=== PATIENT | female | born 1995 | race African-American/Black ===

== ENCOUNTER 2019-07-06 12:09 | Outpatient (CLI) | payer MEDICAID ==
[2019-07-06 12:44] LABS: APPEARANCE,URINE SLIGHTLY-CLOUDY; BILIRUBIN,URINE NEGATIVE (NEGATIVE); COLOR,URINE YELLOW; GLUCOSE, URINE NEGATIVE (NEGATIVE); KETONES,URINE TRACE mg/dL (NEGATIVE); LEUKOCYTE ESTERASE,URINE SMALL (NEGATIVE); NITRITE,URINE NEGATIVE (NEGATIVE); PROTEIN,URINE 30 mg/dL (NEGATIVE); URINE SPECIFIC GRAVITY 1.024
[2019-07-06 12:59] LABS: URINE AMPHETAMINES SCREEN NEGATIVE; URINE BARBITURATES SCREEN NEGATIVE; URINE BENZODIAZEPINES SCREEN NEGATIVE; URINE COCAINE SCREEN NEGATIVE; URINE MARIJUANA (THC) SCREEN NEGATIVE; URINE METHADONE SCREEN NEGATIVE; URINE PHENCYCLIDINE SCREEN NEGATIVE
[2019-07-06] MEDS ORDERED: HYDROXYZINE PAMOATE 50 MG CAPSULE PO ONE (13:04)
[2019-07-06] MEDS ORDERED: HYDROXYZINE PAMOATE 50 MG CAPSULE ONE (13:05)
--- NOTE | 2019-07-06 13:15 | Non Stress Test Report ---
Non Stress Test Datetime Report Generated by CPN: 07/06/2019 13:15 DEMOGRAPHIC EGA NST: 37.4 INDICATION Indication for Study (NST) Other: Contractions Indication for Study (NST) Other: false labor VITAL SIGNS Temperature - NST: 98.6 MONITORING Monitor Explained: Monitor Explained; Test Explained; Patient Verbalized Understanding Monitor Explained: Monitor Explained; Test Explained; Patient Verbalized Understanding Time on Monitor: 07/06/2019 12:26 Time on Monitor: 07/06/2019 12:26 Time off Monitor: 07/06/2019 12:57 Time off Monitor: 07/06/2019 12:51 NST Duration: 31 NST Duration: 25 NST INTERVENTIONS NST Interventions: PO Hydration; Reposition Patient Physician Notified NST: DrPaloma Mackaye Physician Notified NST: DrPaloma Mackaye on unit, reviewed fht BABY A: [id number] BABY A Movement : Present Movement : Present Contraction Frequency : occasional Contraction Frequency : x1 FHR Baseline : 140 Accelerations : 15X15 Accelerations : 15X15 Decelerations : None Decelerations : None Variability : Moderate 6-25bpm Variability : Moderate 6-25bpm NST Review: Meets Criteria for Reactive NST NST Review: Meets Criteria for Reactive NST NST Review and Verified By : Ranjana Snell RN NST Review and Verified By : Héctor Hwang RN NST Results: Reactive NST Results: Reactive NST REPORT Report Trigger: Send Report
== END 2019-07-06 13:48 | disposition home or self-care (01) ==
LOC: LC 12:09
PROVIDERS: ATTEND Obstetrics & Gynecology
PROC: 4A1HXCZ Monitoring of Products of Conception, Cardiac Rate, External Approach (ICD-10-PCS; principal; 2019-07-06)
DX: O47.1 False labor at or after 37 completed weeks of gestation (principal); Z3A.37 37 weeks gestation of pregnancy
CPT/HCPCS: 59025; 81005; 80307; J3490

== ENCOUNTER 2019-07-23 01:36 | Outpatient (CLI) | payer MEDICAID ==
--- NOTE | 2019-07-23 02:59 | Non Stress Test Report ---
Non Stress Test Datetime Report Generated by CPN: 07/23/2019 02:58 DEMOGRAPHIC EGA NST: 40.0 INDICATION Indication for Study (NST) Other: LC IUP @ 40 MONITORING Monitor Explained: Monitor Explained; Test Explained; Patient Verbalized Understanding Time on Monitor: 07/23/2019 02:12 Time off Monitor: 07/23/2019 02:57 NST Duration: 45 NST INTERVENTIONS NST Interventions: PO Hydration; Meal Given; Reposition Patient Physician Notified NST: Dr. Dorado BABY A: [id number] BABY A Movement : Present Contraction Frequency : 6-6.5 FHR Baseline : 125 Accelerations : 15X15 Decelerations : None Variability : Moderate 6-25bpm NST Review: Meets Criteria for Reactive NST NST Review and Verified By : Keagan Pettit RN NST Results: Reactive NST REPORT Report Trigger: Send Report
[2019-07-23 03:19] LABS: APPEARANCE,URINE CLEAR; BILIRUBIN,URINE NEGATIVE (NEGATIVE); COLOR,URINE YELLOW; GLUCOSE, URINE NEGATIVE (NEGATIVE); KETONES,URINE NEGATIVE (NEGATIVE); LEUKOCYTE ESTERASE,URINE MODERATE (NEGATIVE); NITRITE,URINE NEGATIVE (NEGATIVE); PROTEIN,URINE NEGATIVE (NEGATIVE); URINE SPECIFIC GRAVITY 1.012; UROBILINOGEN,URINE NEGATIVE mg/dL (<2.0)
[2019-07-23 03:55] LABS: URINE AMPHETAMINES SCREEN NEGATIVE; URINE BARBITURATES SCREEN NEGATIVE; URINE BENZODIAZEPINES SCREEN NEGATIVE; URINE COCAINE SCREEN NEGATIVE; URINE MARIJUANA (THC) SCREEN NEGATIVE; URINE METHADONE SCREEN NEGATIVE; URINE PHENCYCLIDINE SCREEN NEGATIVE
== END 2019-07-23 03:40 | disposition home or self-care (01) ==
LOC: LC 01:36
PROVIDERS: ATTEND Obstetrics & Gynecology
PROC: 4A1HXCZ Monitoring of Products of Conception, Cardiac Rate, External Approach (ICD-10-PCS; principal; 2019-07-23)
DX: O47.1 False labor at or after 37 completed weeks of gestation (principal); Z3A.40 40 weeks gestation of pregnancy
CPT/HCPCS: 59025; 80307; 81005

== ENCOUNTER 2019-07-25 11:50 | Outpatient (CLI) | payer MEDICAID ==
[2019-07-25 12:32] LABS: APPEARANCE,URINE SLIGHTLY-CLOUDY; BILIRUBIN,URINE NEGATIVE (NEGATIVE); COLOR,URINE YELLOW; GLUCOSE, URINE NEGATIVE (NEGATIVE); KETONES,URINE NEGATIVE (NEGATIVE); LEUKOCYTE ESTERASE,URINE TRACE (NEGATIVE); NITRITE,URINE NEGATIVE (NEGATIVE); PROTEIN,URINE NEGATIVE (NEGATIVE); URINE SPECIFIC GRAVITY 1.016
--- NOTE | 2019-07-25 12:51 | Non Stress Test Report ---
Non Stress Test Datetime Report Generated by CPN: 07/25/2019 12:51 DEMOGRAPHIC EGA NST: 40.2 INDICATION Indication for Study (NST) Other: LC ordered by MD VITAL SIGNS Temperature - NST: 98.4 Pulse - NST: 95 RESP - NST: 16 NBPSYS NST: 117 NBPDIA NST: 69 MONITORING Monitor Explained: Monitor Explained; Test Explained; Patient Verbalized Understanding Time on Monitor: 07/25/2019 12:10 Time off Monitor: 07/25/2019 12:48 NST Duration: 38 NST INTERVENTIONS NST Interventions: PO Hydration Physician Notified NST: Dr Willson BABY A: [id number] BABY A Movement : Present Contraction Frequency : rare FHR Baseline : 140 Accelerations : 15X15 Decelerations : None Variability : Moderate 6-25bpm NST Review: Meets Criteria for Reactive NST NST Review and Verified By : C. Cuba RN NST Results: Reactive NST COMMENTS NST Comments: provider on unit reviewing NST REPORT Report Trigger: Send Report
[2019-07-25 12:55] LABS: URINE AMPHETAMINES SCREEN NEGATIVE; URINE BARBITURATES SCREEN NEGATIVE; URINE BENZODIAZEPINES SCREEN NEGATIVE; URINE COCAINE SCREEN NEGATIVE; URINE MARIJUANA (THC) SCREEN NEGATIVE; URINE METHADONE SCREEN NEGATIVE; URINE PHENCYCLIDINE SCREEN NEGATIVE
== END 2019-07-25 13:00 | disposition home or self-care (01) ==
LOC: LC 11:50
PROVIDERS: ATTEND Obstetrics & Gynecology Gynecology
PROC: 4A1HXCZ Monitoring of Products of Conception, Cardiac Rate, External Approach (ICD-10-PCS; principal; 2019-07-25)
DX: O47.1 False labor at or after 37 completed weeks of gestation (principal); O99.283 Endocrine, nutritional and metabolic diseases complicating pregnancy, third trimester; E86.0 Dehydration; O48.0 Post-term pregnancy; Z3A.40 40 weeks gestation of pregnancy
CPT/HCPCS: 80307; 81005; 84112

== ENCOUNTER 2019-07-26 15:47 | Outpatient (CLI) | payer MEDICAID | END 2019-07-26 16:21 | disposition home or self-care (01) | LOC: LC 15:47 | PROVIDERS: ATTEND Obstetrics & Gynecology | PROC: 4A1HXCZ Monitoring of Products of Conception, Cardiac Rate, External Approach (ICD-10-PCS; principal; 2019-07-26) | DX: O48.0 Post-term pregnancy (principal); O99.283 Endocrine, nutritional and metabolic diseases complicating pregnancy, third trimester; E86.0 Dehydration; Z3A.40 40 weeks gestation of pregnancy | CPT/HCPCS: 59025 ==

== ENCOUNTER 2019-07-30 21:34 | Inpatient (IN) | payer MEDICAID ==
[2019-07-30] MEDS ORDERED: DINOPROSTONE 10 MG VAGINAL INSERT.SR ONE (22:27)
[2019-07-30] MEDS ORDERED: OXYTOCIN/NORMAL SALINE 20 UNIT/1,000 ML RTUINJ IV PRN (22:36)
[2019-07-30] MEDS ORDERED: RINGERS SOLUTION,LACTATED 1,000 ML IV PRN (22:36)
[2019-07-30] MEDS ORDERED: DINOPROSTONE 10 MG VAGINAL INSERT.SR PV PRN (22:36)
[2019-07-30] MEDS ORDERED: RINGERS SOLUTION,LACTATED 300 ML IV ONE (22:36)
[2019-07-30 23:31] LABS: ABSOLUTE EOSINOPHILS # (AUTO) 0.1 10^3/uL (0.0-0.6); ABSOLUTE MONOCYTES (AUTO) 0.7 10^3/uL (0.1-1.4); ABSOLUTE NEUT (AUTO) 5.4 10^3/uL (1.7-8.2); BASOPHILS % (AUTO) 0.4 % (0-2); EOSINOPHILS % (AUTO) 0.8 % (0-6); HEMATOCRIT 36.9 % (36.0-47.0); HEMOGLOBIN 12.7 g/dL (12.0-15.5); LYMPHOCYTES % (AUTO) 24.6 % (13-45); MEAN CORPUSCULAR HGB CONC 34.3 g/dL (32.0-36.0); MEAN CORPUSCULAR VOLUME 99 fl (80-97); MONOCYTES % (AUTO) 8.2 % (3-13); PLATELET COUNT 283 10^3/uL (150-450); RED BLOOD COUNT 3.72 10^6/uL (3.72-5.28); RED CELL DISTRIBUTION WIDTH 14.1 % (11.5-14.0); TOTAL CELLS COUNTED % (AUTO) 100 %; WHITE BLOOD COUNT 8.2 10^3/uL (4.0-10.5)
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
[2019-07-31 07:54] LABS: APPEARANCE,URINE SLIGHTLY-CLOUDY; BILIRUBIN,URINE NEGATIVE (NEGATIVE); COLOR,URINE YELLOW; GLUCOSE, URINE NEGATIVE (NEGATIVE); KETONES,URINE NEGATIVE (NEGATIVE); LEUKOCYTE ESTERASE,URINE SMALL (NEGATIVE); NITRITE,URINE NEGATIVE (NEGATIVE); PROTEIN,URINE 30 mg/dL (NEGATIVE); URINE SPECIFIC GRAVITY 1.027
[2019-07-31 08:40] LABS: URINE AMPHETAMINES SCREEN NEGATIVE; URINE BARBITURATES SCREEN NEGATIVE; URINE BENZODIAZEPINES SCREEN NEGATIVE; URINE COCAINE SCREEN NEGATIVE; URINE MARIJUANA (THC) SCREEN NEGATIVE; URINE METHADONE SCREEN NEGATIVE; URINE PHENCYCLIDINE SCREEN NEGATIVE
[2019-07-31] MEDS ORDERED: LIDOCAINE 1% INJ-PF (10 MG/ML) 30 ML SDV ONE (12:27)
[2019-07-31] MEDS ORDERED: OXYTOCIN 10 UNIT/ML VIAL ONE (12:27)
[2019-07-31] MEDS ORDERED: MISOPROSTOL 0.2 MG TABLET ONE (12:27)
[2019-07-31] MEDS ORDERED: OXYTOCIN/NORMAL SALINE 20 UNIT/1,000 ML RTUINJ ONE (12:27)
[2019-07-31] MEDS ORDERED: DEXTROSE 5%-LACTATED RINGERS 1,000 ML IV ONE (18:12)
[2019-07-31] MEDS ORDERED: DIBUCAINE 1% OINTMENT 28 GM TP PRN (22:06)
[2019-07-31] MEDS ORDERED: MISOPROSTOL 0.2 MG TABLET PR PRN (22:06)
[2019-07-31] MEDS ORDERED: OXYTOCIN/NORMAL SALINE 20 UNIT/1,000 ML RTUINJ IV PRN (22:06)
[2019-07-31] MEDS ORDERED: DIPH/PERTUSS(ACELL)/TETANUS VAC/PF 0.5 ML SYR (>=10YO) IM PRN (22:06)
[2019-07-31] MEDS ORDERED: BENZOCAINE/MENTHOL AEROSOL SPRAY 56 ML TOP PRN (22:06)
[2019-07-31] MEDS ORDERED: ZOLPIDEM TARTRATE 5 MG TABLET PO PRN (22:06)
[2019-07-31] MEDS ORDERED: ACETAMINOPHEN WITH CODEINE #3 TABLET PO PRN ×2 (22:06)
[2019-08-01] MEDS ORDERED: CEFAZOLIN INJ 1 GM VIAL ONE (03:36)
[2019-08-01] MEDS: CEFAZOLIN 2 GM/D5W RTU 2 GM/50 ML RTUPB IV SCH ×2 (03:57→16:52)
[2019-08-01] MEDS: IBUPROFEN 800 MG TABLET PO SCH ×3 (05:57→22:19)
[2019-08-01 07:01] LABS: HEMATOCRIT 32.7 % (36.0-47.0); HEMOGLOBIN 11.2 g/dL (12.0-15.5); MEAN CORPUSCULAR HEMOGLOBIN 34.1 pg (27.0-33.4); MEAN CORPUSCULAR HGB CONC 34.2 g/dL (32.0-36.0); MEAN CORPUSCULAR VOLUME 100 fl (80-97); PLATELET COUNT 248 10^3/uL (150-450); RED BLOOD COUNT 3.28 10^6/uL (3.72-5.28)
[2019-08-01] MEDS: PRENATAL VITAMIN W DHA CAPSULE PO SCH (09:39)
[2019-08-01] MEDS: SENNOSIDES/DOCUSATE 8.6-50 MG 1 EACH TABLET PO SCH (09:39)
[2019-08-01] MEDS: FERROUS SULFATE 325 MG TABLET PO SCH ×2 (09:39→17:45)
[2019-08-01] MEDS: DOCUSATE SODIUM 100 MG CAPSULE PO SCH ×2 (09:40→17:45)
--- NOTE | 2019-08-01 09:45 | PDOC PROGRESS REPORT ---
Subjective-OB Progress Note for:: 08/01/19 Physical Exam (OB) Vital Signs: Temp Pulse Resp BP Pulse Ox 98.0 F 88 16 111/61 99 08/01/19 07:39 08/01/19 07:39 08/01/19 07:39 08/01/19 07:39 08/01/19 07:39 Intake & Output 07/31/19 08/01/19 08/02/19 06:59 06:59 06:59 Intake Total 650 200 Balance 650 200 Weight 77 kg - PIH/Pre-Eclampsia Headache: Absent Epigastric Pain: No Visual Changes: No - Lochia Lochia Amount: Scant < 10 ml Lochia Color: Rubra/Red - Abdomen Description: Tender, Soft Hernia Present: No Bowel Sounds: Normoactive Flatus Presence: Absent Stool: No Fundal Description: Firm, Midline Fundal Height: u/u - u/2 Objective-Diagnostic Laboratory: 08/01/19 06:31 08/01/19 06:31 WBC 14.0 H RBC 3.28 L Hgb 11.2 L Hct 32.7 L MCV 100 H MCH 34.1 H MCHC 34.2 RDW 14.0 Plt Count 248
[2019-08-01] MEDS: CEFAZOLIN SODIUM 2 GM in DEXTROSE 5%-WATER 100 ML IV SCH ×2 (12:22→17:46)
[2019-08-02] MEDS: IBUPROFEN 800 MG TABLET PO SCH ×2 (05:09→13:57)
[2019-08-02] MEDS: DOCUSATE SODIUM 100 MG CAPSULE PO SCH ×2 (09:36→18:28)
[2019-08-02] MEDS: PRENATAL VITAMIN W DHA CAPSULE PO SCH (09:37)
[2019-08-02] MEDS: FERROUS SULFATE 325 MG TABLET PO SCH ×2 (09:37→18:28)
[2019-08-02] MEDS: SENNOSIDES/DOCUSATE 8.6-50 MG 1 EACH TABLET PO SCH (09:37)
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
[2019-08-02 11:59] VITALS: BP 122/79
--- NOTE | 2019-08-06 12:48 | Delivery Summary ---
Del Sum A-C Datetime Report Generated by CPN: 08/06/2019 12:47 DELIVERY PERSONNEL DELIVERY PERSONNEL: [id number] Delivery Doctor:: Silvana Mac MD Labor and Delivery Nurse:: Kandice Worley RNsenior java architect Nurse:: TATI Souza Utility Assembler:: Beth Rose RN Nursery Nurse:: Orly Rose RN MATERNAL INFORMATION Delivery Anesthesia: None Medications After Delivery: Pitocin Bolus-Please Comment Meds After Delivery Comment: Pitocin 20 units/1000 ml NSS Delivery QBL: 50 Delivery QBL Comment: 50 ml Maternal Complications: None Provider Comments: of a viable male at 2143 w/ cephalic presentation; APGARs 8, 9; 1st deg left vag wall lac LABOR SUMMARY EDC: 07/23/2019 00:00 No. Babies in Womb: 1 Attempted: No Labor Anesthesia: None LABOR INFORMATION Reason for Induction: Post Dates Onset of Labor: 07/31/2019 12:30 Complete Dilatation: 07/31/2019 21:30 Cervical Ripening Agents: Cervidil Oxytocin: Induction Group B Beta Strep: negative Antibiotics # of Doses: n/a Antibiotics Time of Last Dose: n/a Name of Antibiotic Given: n/a Steroids Given: None Reason Steroids Not Administered: Not Applicable MEMBRANES Membranes Rupture Method: Artificial Rupture of Membranes: 07/31/2019 14:51 Length of Rupture (hr): 6.87 Amniotic Fluid Color: Clear Amniotic Fluid Amount: Small Amniotic Fluid Odor: Normal STAGES OF LABOR Stage 1 hr: 9 Stage 1 min: 0 Stage 2 hr: 0 Stage 2 min: 13 Stage 3 hr: 0 Stage 3 min: 6 Total Time in Labor hr: 9 Total Time in Labor min: 19 VAGINAL DELIVERY Episiotomy: None Laceration #1: Vaginal Laceration Extension #1: First Degree Laceration Repair: Yes Laceration Repair Note: 1st degree left vaginal wall lac-repaired with 2-0 Chromic Sponge Count Correct: Yes Sharps Count Correct: Yes CSECTION DELIVERY Primary Indication: N/A Secondary Indication: N/A CSection Incidence: N/A Labor: N/A Elective: N/A CSection Incision: N/A BABY A INFORMATION Delivery Date/Time: 07/31/2019 21:43 Method of Delivery: Vaginal Nurse Controlled Delivery: No Born in Route : No : N/A Forceps: N/A Vacuum Extraction: N/A Shoulder Dystocia : No PRESENTATION/POSITION BABY A Presentation: Cephalic Presentation: Cephalic Cephalic Presentation: Vertex Vertex Position: Right Occipital Anterior Breech Presentation: N/A PLACENTA INFORMATION BABY A Placenta Delivery Time : 07/31/2019 21:49 Placenta Method of Delivery: Spontaneous Placenta Method of Delivery: Spontaneous Placenta Status: Delivered SCORES BABY A Heart Rate 1 min: >100 bpm Resp Effort 1 min: Good Cry Reflex Irritability 1 min: Cough or Sneeze or Pulls Away Muscle Tone 1 min: Active Motion Color 1 min: Blue/Pale Resuscitation Effort 1 min: Tactile Stimulation SCORE 1 MIN: 8 Heart Rate 5 min: >100 bpm Resp Effort 5 min: Good Cry Reflex Irritability 5 min: Cough or Sneeze or Pulls Away Muscle Tone 5 min: Active Motion Color 5 min: Body [place], Extremities Blue SCORE 5 MIN: 9 INFORMATION BABY A Gestational Age at Delivery: 41.1 Gestational Status: Late Term- 41- 41.6 Weeks Outcome : Liveborn Condition : Stable Infant Sex: Male IDENTIFICATION BABY A Infant Verification Date/Time: 07/31/2019 22:37 ID Band Number: [id number] Mother's Name Verified: Yes Infant RN Verifying Infant: , RN and Jennifer, RN WEIGHT/LENGTH BABY A Birthweight (gm): 3030 Infant Weight (lb): 6 Weight (oz): 11 Infant Length (in): 19.00 Length (cm): 48.26 CORD INFORMATION BABY A No. Cord Vessels: 3 Nuchal Cord : N/A Cord Blood Taken: Yes-For Eval (Mom's Blood Type - or O+) Infant Suction: Mouth ASSESSMENT BABY A Infant Complications: None Physical Findings at Delivery: Within Normal Limits Infant Respirations: Appears Normal Skin to Skin: Yes Skin to Skin Time (min): 45 Care By: LEE ANN Schroeder Transferred To: Remains with Mother SIGNATURES Signature: with User ID: [email or web address]
== END 2019-08-02 19:05 | disposition home or self-care (01) | DRG 807 ==
LOC: LR 21:34 → 2S 08-01 00:07
PROVIDERS: ADMIT Student in an Organized Health Care Education/Training Program; ATTEND Obstetrics & Gynecology
PROC: 10E0XZZ Delivery of Products of Conception, External Approach (ICD-10-PCS; principal; 2019-07-31)
PROC: 0HQ9XZZ Repair Perineum Skin, External Approach (ICD-10-PCS; 2019-07-31)
PROC: 3E0234Z Introduction of Serum, Toxoid and Vaccine into Muscle, Percutaneous Approach (ICD-10-PCS; 2019-08-02)
DX: O48.0 Post-term pregnancy (principal); Z37.0 Single live birth; Z3A.41 41 weeks gestation of pregnancy; O70.0 First degree perineal laceration during delivery; Z23 Encounter for immunization
CPT/HCPCS: 36415; 80307; 81005; 85025; 85027; 86592; 86850; 86900; 86901; 90715; J0690; J2590; J3490; J7060